=== PATIENT | male | born 2000 | race Two or more races ===

== ENCOUNTER → 2024-08-17 | Outpatient (CLI) | payer BC ==
[2024-08-17 11:43] LABS: Urine Bacteria None Seen /hpf (None Seen)
[2024-08-17 12:08] LABS: Basophils # (auto) 0 10 ^3/uL (0-0.2); Basophils % (auto) 0.5 % (0.0-2.0); Eosinophils # (auto) 0 10 ^3/uL (0-0.8); Eosinophils % (auto) 0.9 % (0.0-7.0); Hematocrit 49.8 % (41.0-53.0); Hemoglobin 16.8 g/dL (13.5-17.5); Lymphocytes # (auto) 1.2 10 ^3/uL (0.4-5.4); Lymphocytes % (auto) 23.9 % (10.0-50.0); Mean Corpuscular Hemoglobin 28.4 pg (28.0-32.0); Mean Corpuscular Hgb Conc. 33.6 g/dL (32.0-36.0); Mean Corpuscular Volume 84.5 fL (80.0-100.0); Monocytes # (auto) 0.4 10 ^3/uL (0-1.3); Monocytes % (auto) 7.7 % (0.0-12.0); Neutrophils # (auto) 3.5 10 ^3/uL (1.6-8.6); Nucleated Red Blood Cells % 0.2 %; Platelet Count (auto) 276 10^3/uL (140-450); Red Cell Distribution Width 13.6 % (11.8-14.3); White Blood Cell 5.2 10^3/uL (4.4-10.8)
[2024-08-17 12:35] LABS: % Iron Saturation 30.9 % (20-55); Alanine Aminotransferase 25 U/L (7-40); Alkaline Phosphatase 93 U/L (46-116); Anion Gap 8 (5-15); Aspartate Aminotransferase 24 U/L (13-40); BUN/Creatinine Ratio 7.1 (10.0-20.0); Calcium 10.3 mg/dL (8.7-10.4); Carbon Dioxide 27 mmol/L (20-31); Chloride 106 mmol/L (98-107); Cholesterol 162 mg/dL (< 200); Glucose 93 mg/dL (74-106); LDL Cholesterol 100 mg/dL (< 100); Potassium 4.1 mmol/L (3.5-5.1); Sodium 141 mmol/L (136-145); Triglycerides 73 mg/dL (< 150)
[2024-08-17 12:36] LABS: HDL Cholesterol 54 mg/dL (40-59)
[2024-08-17 12:37] LABS: Prostate Specific Antigen 0.58 ng/mL (0.0-4.0)
[2024-08-17 12:40] LABS: Albumin 4.9 g/dL (3.2-4.8); Bilirubin, Total 1.4 mg/dL (0.2-1.0); Blood Urea Nitrogen 7 mg/dL (9-23); Total Protein 8.3 g/dL (5.7-8.2)
[2024-08-17 12:41] LABS: Folate (Folic Acid) 15.78 ng/mL (>5.38)
[2024-08-17 12:51] LABS: Uric Acid 6.1 mg/dL (3.7-9.2)
[2024-08-17 13:02] LABS: Urine Blood Negative /uL (Negative); Urine Clarity Clear (Clear); Urine Color Yellow (Yellow); Urine Mucus FEW (None Seen); Urine Protein, UAD TRACE (Negative); Urine Specific Gravity 1.023 (1.001-1.035); Urine Urobilinogen Normal (Negative); Urine WBC <1 /hpf (0 - 3); Urine pH 6.5 (5.0-9.0)
[2024-08-18 09:06] LABS: RPR Non Reactive (Non Reactive)
[2024-08-18 21:06] LABS: Chlamydia Trachomatis, NAA Negative (Negative); Neisseria gonorrhoeae, NAA Negative (Negative)
[2024-08-19 02:06] LABS: HSV 1 IgG Antibody Non Reactive (Non Reactive); HSV 2 IgG Antibody Non Reactive (Non Reactive); Hepatitis B Core Total Antibod Negative (Negative)
== END | disposition home or self-care (01) ==
LOC: LAB 11:16
PROVIDERS: ATTEND Family Medicine
DX: K90.49 Malabsorption due to intolerance, not elsewhere classified (principal)
CPT/HCPCS: 36415; 80053; 80061; 81001; 82306; 82607; 82746; 83036; 83540; 83550; 84153; 84403; 84443; 84550; 85025; 86592; 86695; 86696; 86703; 86708; 86803